=== PATIENT | female | born 1945 | race Caucasian/White ===

== ENCOUNTER → 2016-09-08 | Outpatient (CLI) | payer MEDICARE, OTHER ==
--- NOTE | ~2016-09-08 | MY11 ---
[facility] A Service of [facility] RADIOLOGY TEXT RESULTS PATIENT: BRINA ORDONEZ LOCATION: [facility] : 45 UNIT #: [id number] AGE: [address]: Sammi Laurent SEX: F ORDER DR: [id number] [facility] [address] [place], [place] [address] [id number] O MR#: [id number] Acc #: [id number] NAME: BRINA ORDONEZ : 1945 SEX: F STUDY DATE/TIME: 09/08/2016 11:15 UNIT: [facility] ROOM: STUDY DESCRIPTION: MY Mammogram Screening Dig Nahid Attending Physician: Kortney Ambrose Referring Physician: Kortney Ambrose Ordering Physician: Kortney Ambrose Primary Care Physician: Kortney Ambrose MEDICAL IMAGING REPORT This report is preliminary unless electronic signature is present EXAM Digital screening mammogram 09/08/2016 HISTORY 71-year-old woman. No risk elevation. Annual screen. COMPARISON Mammograms date to 02/21/2007 with most recent 05/19/2011. FINDINGS Digital imaging of each breast was completed utilizing screening protocol. Review includes FDA-approved CAD device. Breast parenchyma is heterogeneously dense with a small nodular pattern bilaterally. Increasing secretory calcifications are present in each breast. I see no suspicious mass characteristics. There are no suspicious microcalcifications and no architectural disturbance. IMPRESSION Benign mammogram. Annual screening recommended. Patients over the age of 40 are entered into a reminder system with target due date for the next mammogram. A result letter will also be sent to the patient. BIRADS: 2 Benign finding. Dictated by... Mitch Alejandro M.D. THIS IS AN ELECTRONICALLY VERIFIED REPORT Mitch Alejandro M.D. at 09/08/2016 2:09 PM Gloria TD: 09/08/2016 13:28 [facility] A Service of [facility] RADIOLOGY TEXT RESULTS PATIENT: BRINA ORDONEZ LOCATION: [facility] #: [id number] : 45 UNIT #: [id number] AGE: [address]: Sammi Laurent SEX: F ORDER DR: HINA #: [id number] MEDICAL IMAGING REPORT Page 1 of 1 COPY
== END | disposition home or self-care (01) ==
LOC: CWCC 08-30 12:15
DX: Z12.31 Encounter for screening mammogram for malignant neoplasm of breast (principal)
CPT/HCPCS: G0202